=== PATIENT | female | born 1995 | race Two or more races ===

== ENCOUNTER 2019-10-08 11:42 | Emergency (ER) | payer OTHER ==
[2019-10-08] MEDS ORDERED: IV NORMAL SALINE 1,000ML 1,000 ML IV ONE (12:15)
--- NOTE | 2019-10-08 12:17 | PHYS DOC ---
Adult General Chief Complaint Chief Complaint: LOWER EXT PAIN HPI HPI Patient is a 24-year-old who is 13 weeks , this is her second , presented to ER today for evaluation of right upper extremity pain and intermittent episode of weakness for about week, she also had right lower extremity pain as well . Patient denies any chest pain, no abdominal pain, no nausea vomiting. Patient denies any trouble breathing. Patient denies any vaginal bleeding or discharge. Patient denies any pelvic pain, no cough, no fever. She went to another ER yesterday for evaluation for the same thing, they sent her home , told her to follow up with her doctor. Patient said she started having cramping in her right arm whenever she hold her son too long. All other ROS is negative unless otherwise noted in HPI Review of Systems Review of Systems See above Current Medications Current Medications Current Medications Medications (Trade) Dose Ordered Sig/Nayana Start Time Stop Time Status Last Admin Dose Admin Sodium Chloride 1,000 ml @ 1,000 mls/hr 1X ONCE 10/08/19 12:15 10/08/19 13:14 Allergies Allergies Allergies Coded Allergies Type Severity Reaction Last Updated Verified No Known Drug Allergies 10/08/19 No Physical Exam Physical Exam See above Constitutional: Well developed, well nourished, no acute distress, non-toxic appearance. [] HENT: Normocephalic, atraumatic, bilateral external ears normal, oropharynx moist, no oral exudates, nose normal. [] Eyes: PERRLA, EOMI, conjunctiva normal, no discharge. [] Neck: Normal range of motion, no tenderness, supple, no stridor. [] Cardiovascular:Heart rate regular rhythm, no murmur [] Lungs & Thorax: Bilateral breath sounds clear to auscultation [] Abdomen: Bowel sounds normal, soft, no tenderness, no masses, no pulsatile masses. [] Skin: Warm, dry, no erythema, no rash. [] Back: No tenderness, no CVA tenderness. [] Extremities: no cyanosis, no clubbing, ROM intact, no edema. There is no swelling or tenderness on right upper extremity. good radial pulse. RIGHT CALF IS TENDER TO PALPATION WITH MINIMAL SWELLING, GOOD DORSALID PEDIS PULSE. Neurologic: Alert and oriented X 3, normal motor function, normal sensory function, no focal deficits noted. Patient can move all extremities without any problem, strong foreign languages professor, no altered sensation. NORMAL SPEECH, NORMAL FACIAL EXPRESSION. Psychologic: Affect normal, judgement normal, mood normal. [] EKG EKG EKG was read by this physician at 2:18 pm, rate of 85 bpm, SINUS RHYTHM, NO STEMI. [] Radiology/Procedures Radiology/Procedures [][address] [id number] IMAGING REPORT Signed PATIENT: CLAUDIO IRVING ACCOUNT: [id number] : 1995 LOCATION: ER AGE: 24 SEX: F EXAM STATUS: REG ER ORD. PHYSICIAN: CLARKE WATSON DO REASON: 13 weeks , right wide pain and numbness for a week PROCEDURE: CT HEAD WO CONTRAST EXAM: Head CT without contrast. HISTORY: . Right-sided pain and numbness. TECHNIQUE: Computed tomographic images of the head were obtained without contrast. *One or more of the following individualized dose reduction techniques were utilized for this examination: 1. Automated exposure control. 2. Adjustment of the mA and/or kV according to patient size. 3. Use of iterative reconstruction technique. COMPARISON: None. FINDINGS: There is no acute or subacute extra-axial or intraparenchymal hemorrhage. There is no mass effect or midline shift. There is no hydrocephalus. The santiago-white matter differentiation pattern is intact. The visualized portions of the orbits, paranasal sinuses and mastoid air cells are unremarkable. No suspicious calvarial lesion is seen. IMPRESSION: No acute intracranial findings. Electronically signed by: Flaquita Diaz MD (10/08/2019 12:38 PM) [place] [id number] DICTATED AND SIGNED BY: FLAQUITA DIAZ MD DATE: 10/08/19 [id number] CC: CLARKE RAJPUT MD; CLARKE WATSON DO ~ Course & Med Decision Making Course & Med Decision Making Pertinent Labs and Imaging studies reviewed. (See chart for details) Patient was given 40 sharita KCL PO, RECHECKED LEVEL THE SAME. WILL NEED TO TRANSFER PATIENT TO [facility] DUE TO NO [employer] EDIT[facility] COVERAGE AT THIS HOSPITAL. DR. THOMAS AGREED TO ACCEPT PATIENT, RECOMMENDED 60 SHARITA KCL PO NOW AND 40 SHARITA KCL IV OVER 4 HOURS. Dragon Disclaimer Dragon Disclaimer This electronic medical record was generated, in whole or in part, using a voice recognition dictation system. Departure Departure: Impression: Primary Impression: Hypokalemia Additional Impression: Disposition: 02 XFER SHT-TRM HOSP (TRANSFER TO [facility] ACCEPTED BY DR. BETY THOMAS) Condition: STABLE Referrals: CLARKE RAJPUT MD (PCP) Problem Qualifiers CLARKE WATSON DO Oct 08, 2019 12:17
[2019-10-08 12:22] LABS: BASO % 0 % (0-3); EOS % 0 % (0-3); HEMATOCRIT 41.4 % (36.0-47.0); HEMOGLOBIN 14.3 g/dL (12.0-15.5); LYMPH # 1.7 x10^3/uL (1.0-4.8); LYMPH % 12 % (24-48); MEAN CORPUSCULAR HEMOGLOBIN 29 pg (25-35); MEAN CORPUSCULAR HGB CONC 35 g/dL (31-37); MEAN CORPUSCULAR VOLUME 83 fL (79-100); MONO # 0.7 x10^3/uL (0.0-1.1); MONO % 5 % (0-9); NEUT # 12.3 x10^3uL (1.8-7.7); NEUT % 83 % (31-73); PLATELET COUNT 295 x10^3/uL (140-400); RED CELL DISTRIBUTION WIDTH 14.9 % (11.5-14.5); WHITE BLOOD COUNT 14.8 x10^3/uL (4.0-11.0)
[2019-10-08 12:38] LABS: ALBUMIN 3.3 g/dL (3.4-5.0); ALBUMIN/GLOBULIN RATIO 0.6 (1.0-1.7); CALCIUM 8.6 mg/dL (8.5-10.1); CREATININE 0.9 mg/dL (0.6-1.0); GFR 78.3; TOTAL BILIRUBIN 0.4 mg/dL (0.2-1.0); TOTAL PROTEIN 8.9 g/dL (6.4-8.2)
--- NOTE | 2019-10-08 12:41 | RAD ---
EXAM: Head CT without contrast. HISTORY: . Right-sided pain and numbness. TECHNIQUE: Computed tomographic images of the head were obtained without contrast. *One or more of the following individualized dose reduction techniques were utilized for this examination: 1. Automated exposure control. 2. Adjustment of the mA and/or kV according to patient size. 3. Use of iterative reconstruction technique. COMPARISON: None. FINDINGS: There is no acute or subacute extra-axial or intraparenchymal hemorrhage. There is no mass effect or midline shift. There is no hydrocephalus. The santiago-white matter differentiation pattern is intact. The visualized portions of the orbits, paranasal sinuses and mastoid air cells are unremarkable. No suspicious calvarial lesion is seen. IMPRESSION: No acute intracranial findings. Electronically signed by: Flaquita Suero MD (10/08/2019 12:38 PM) [place] [id number]
[2019-10-08 12:44] LABS: POTASSIUM 1.8 mmol/L (3.5-5.1)
[2019-10-08 12:48] LABS: BILIRUBIN,URINE NEG (NEG); CLARITY,URINE HAZY; COLOR,URINE YELLOW; GLUCOSE,URINE NEG (NEG)
[2019-10-08 12:49] LABS: BACTERIA,URINE MOD /HPF (0-FEW); NITRITE,URINE NEG (NEG); SQUAMOUS EPITHELIAL CELL,UR FEW /LPF; UROBILINOGEN,URINE 0.2 mg/dL (0.2 mg/dL)
[2019-10-08] MEDS ORDERED: POTASSIUM CHLORIDE 20 MEQ TABLET.ER. PO ONE (13:00)
--- NOTE | 2019-10-08 13:25 | RAD ---
EXAM: Right lower extremity venous Doppler sonogram. HISTORY: Pain and swelling. TECHNIQUE: Renner scale and color Doppler sonographic evaluation of the right lower extremity veins with spectral waveform analysis was performed. FINDINGS: There is normal color flow, normal compressibility and there are normal spectral waveforms in the common femoral, superficial femoral, popliteal, posterior tibial and greater saphenous veins. IMPRESSION: No Doppler evidence of lower extremity deep venous thrombosis. Electronically signed by: Flaquita Suero MD (10/08/2019 1:22 PM) [place] [id number]
[2019-10-08] MEDS ORDERED: IV NORMAL SALINE 50ML 50 ML ONE (13:59)
[2019-10-08] MEDS ORDERED: cefTRIAXone SODIUM 1 GM VIAL ONE (13:59)
[2019-10-08 15:32] LABS: CALCIUM 8.3 mg/dL (8.5-10.1); CREATININE 0.8 mg/dL (0.6-1.0); GFR 89.7
[2019-10-08 15:38] LABS: POTASSIUM 1.8 mmol/L (3.5-5.1)
[2019-10-08] MEDS ORDERED: POTASSIUM CHLORIDE 10 MEQ TABLET.ER. PO ONE (16:00)
[2019-10-08] MEDS ORDERED: POTASSIUM CL 40MEQ D5-0.45NACL 1,000 ML IV ONE (16:00)
[2019-10-08 17:50] VITALS: BP 108/54
--- NOTE | 2019-10-08 19:23 | EKG ---
[address] [id number] Test Date: 2019-10-08 Test Time: 14:17:34 Pat Name: CLAUDIO IRVING Department: Room: Gender: F Touch Up Carver: : 1995 Requested By: CLARKE WATSON Order Number: [id number] Reading MD: Measurements Intervals [place] Rate: 85 P: 26 DE: 138 QRS: 49 QRSD: 94 T: 17 QT: 374 QTc: 451 Interpretive Statements SINUS RHYTHM NORMAL ECG RI6.01 No previous ECG available for comparison
== END 2019-10-08 18:30 | disposition short-term general hospital (02) ==
LOC: ER 11:42
DX: O99.281 Endocrine, nutritional and metabolic diseases complicating pregnancy, first trimester (principal); E87.6 Hypokalemia; R53.1 Weakness; M79.601 Pain in right arm; M79.604 Pain in right leg; Z3A.13 13 weeks gestation of pregnancy
CPT/HCPCS: 36415; 70450; 80048; 80053; 81001; 84702; 85025; 93005; 93971; 96365; 96366; 96367; 99285; J0696; J7042; J7030